=== PATIENT | male | born 1990 | race Caucasian/White ===

== ENCOUNTER 2023-02-27 08:46 | Emergency (ER) | payer BC, SELFPAY ==
[2023-02-27 08:56] VITALS: BP 113/82; PULSE 113; RESP 16; TEMP 36.5; O2SAT 99
--- NOTE | 2023-02-27 09:10 | ECG_ITS ---
Measurements Intervals [place] Rate: 77 P: 64 [place]: 155 QRS: 97 QRSD: 104 T: 25 QT: 342 QTc: 389 Interpretive Statements SINUS RHYTHM WITH SINUS ARRHYTHMIA POSSIBLE LEFT ATRIAL ENLARGEMENT INCOMPLETE RIGHT BUNDLE BRANCH BLOCK BORDERLINE ECG NO PREVIOUS ECG AVAILABLE FOR COMPARISON Electronically Signed On 02-28-2023 16:15:10 CDT by Chay Wynn M.D.
--- NOTE | 2023-02-27 09:14 | ED.CHESTPAIN ---
HPI - Chest Pain General Chief Complaint: Chest Pain Stated Complaint: CHEST PAIN Time Seen by Provider: 02/27/23 09:35 Source: patient Mode of arrival: ambulatory Limitations: no limitations History of Present Illness HPI narrative: 32 y/o male with hx VSD (and unspecified surgery on aorta as ) presented for c/o intermittent left chest pain this week. Endorses pokes to the left chest and left axilla, and has noticed HR has increased to 110s. Denies palpitations, but states he can 'feel it beating faster.' Patient follows with [facility] strategic client executive Dr Briceno. He requested his echo be moved up from September to March, unrelated to these complaints. He has not contacted strategic client executive about the chest pain. Denies associated dizziness, n/v/, radiating pain or sweating. Pain is not reproducible. Denies increase in caffeine. Denies injury or lifting/pushing. Related Data Home Medications Medication Instructions Recorded Confirmed No Home Medications 02/27/23 02/27/23 Allergies Allergy/AdvReac Type Severity Reaction Status Date / Time No Known Allergies Allergy Verified 02/27/23 08:54 Review of Systems Review of Systems: CONSTITUTIONAL: Denies body aches, fever, chills, or sweats. EYES: Denies visual changes, redness, or discharge. ENT: Denies rhinorrhea, congestion, sore throat, or otalgia. CARDIOVASCULAR: Reports chest pain, Denies palpitations, or edema. RESPIRATORY: Denies cough, sob, wheezing. GASTROINTESTINAL: Denies abdominal pain, nausea, vomiting, or diarrhea. GENITOURINARY: Denies dysuria or hematuria. SKIN: Denies rash, itching, or wounds. MUSCULOSKELETAL: Denies back pain, joint pain, or myalgia. NEUROLOGIC: Denies headache, numbness, tingling, or weakness. All systems reviewed & are unremarkable except as noted in HPI and below PMFSH Past Medical History Medical History (Updated 02/27/23 @ 11:28 by Monica Monroe APRN) VSD (ventricular septal defect) Comments At time of signature, I have reviewed and agree with nursing past medical, surgical, social and family history unless otherwise noted. Please see nursing chart for further information. There is no relevant family history pertinent to the presenting complaint Exam Narrative: GENERAL: Well-appearing, in no acute distress. EYES: EOMI. No redness or drainage. Conjunctivae normal. ENT: Mucous membranes pink and moist. No rhinorrhea. TMs normal bilaterally. Throat normal. Uvula midline. NECK: Normal AROM. Supple. CHEST: No respiratory distress. Lungs clear throughout all ahumada. Unable to illicit chest pain. HEART: Regular rate and rhythm. No murmur appreciated. ABDOMEN: Soft, nontender, nondistended, normal active bowel sounds. EXTREMITIES: Normal range of motion. No edema. SKIN: Warm, dry, no rash. Capillary refill normal. Normal skin turgor. NEURO: Alert and oriented x3. Gait steady. PSYCH: Normal affect. Course Course Emergency Course: Patient is aware of diagnosis, understands and agrees to treatment plan. Anticipatory guidance given. Patient agrees to follow-up as directed and is aware of reasons to seek care at the emergency department. Portions of this record may have been created with voice recognition software Level of Care: Express Care Visit Vital Signs Vital signs: Vital Signs Temperature 97.7 F 02/27/23 08:56 Pulse Rate 113 H 02/27/23 08:56 Respiratory Rate 16 02/27/23 08:56 Blood Pressure 113/82 02/27/23 08:56 Pulse Oximetry 99 02/27/23 08:56 Temperature 97.7 F 02/27/23 08:56 Pulse Rate 113 H 02/27/23 08:56 Respiratory Rate 16 02/27/23 08:56 Blood Pressure 113/82 02/27/23 08:56 Pulse Oximetry 99 02/27/23 08:56 MDM - Chest Pain MDM Narrative Medical decision making narrative: Patient presented for complaint of intermittent left chest this week. EKG reviewed, no comparison available; results reviewed with pt and father. Patient currently denies any chest pain. Contac
== END 2023-02-27 10:28 | disposition home or self-care (01) ==
PROVIDERS: Emergency Provider Nurse Practitioner Family; PCP Family Medicine Adolescent Medicine
DX: R07.9 Chest pain, unspecified (principal); I45.10 Unspecified right bundle-branch block
CPT/HCPCS: 93005; 99213; G0463

== ENCOUNTER 2024-03-30 08:40 | Emergency (ER) | payer OTHER, SELFPAY ==
[2024-03-30 08:55] VITALS: BP 111/72; PULSE 129; RESP 16; TEMP 36.6; O2SAT 97
--- NOTE | 2024-03-30 08:58 | ED.URI ---
HPI - URI/Sore Throat General Chief Complaint: Upper Respiratory Infection Stated Complaint: SORE THROAT Time Seen by Provider: 03/30/24 09:00 Source: patient, RN notes reviewed and old records reviewed Mode of arrival: ambulatory Limitations: no limitations History of Present Illness HPI Narrative: 34 year old male who presents to [facility] care with complaints of dizziness on Friday then yesterday started with a sore throat. Patient reports no fever and reports dizziness resolved on Friday evening..Patient has not taken any OTC medications for his symptoms denies any known fevers, chills or sweats. admits to some soreness with swallowing. MD elicited complaint: sore throat Pertinent past history: other (aortic coarctiation surgery at ) Onset (ago): day(s) Severity: mild Able to tolerate fluids by mouth: Yes Treatments prior to arrival: none Related Data Allergies Allergy/AdvReac Type Severity Reaction Status Date / Time No Known Allergies Allergy Verified 03/30/24 08:48 Review of Systems Review of Systems: CONSTITUTIONAL: Denies malaise, chills, sweats, or fever. EYES: Denies visual changes, redness, or discharge. ENT: Reports no rhinorrhea, congestion, sinus pain, no otalgia and positive for sore throat. CARDIOVASCULAR: Denies chest pain, palpitations, or edema. RESPIRATORY: Reports cough.? Denies dyspnea. GASTROINTESTINAL: Denies abdominal pain, nausea, vomiting, diarrhea SKIN: Denies rash or itching. MUSCULOSKELETAL: Denies myalgia. NEUROLOGIC: Denies headache. All systems reviewed & are unremarkable except as noted in HPI and below PMFSH Past Medical History Medical History (Updated 03/30/24 @ 10:46 by Anita Bond NP) VSD (ventricular septal defect) takes antibiotics with dental procedures Surgical History Surgical History (Updated 03/30/24 @ 10:46 by Anita Bond NP) Status post aortic coarctation repair at Social History Social History (Updated 03/30/24 @ 09:12 by Anita Bond NP) Smoking status: Never smoker Alcohol intake: current Alcohol use details: rare social Substance use type: does not use Living arrangements: with family Gender identity (if verbalized by the patient): Male Comments At time of signature, agree with nursing past medical, surgical, social and family history. There is no relevant family history pertinent to the presenting complaint Exam Narrative: GENERAL: Well-appearing, well-nourished, and in no acute distress. HEAD: Normocephalic EYES: PERRLA, conjunctivae clear ENT: Nares clear, turbinates edematous and erythematous, clear discharge. Mucous membranes moist. TM pearly pineda with dull light reflex bilaterally; no tragal tenderness. Oropharynx erythematous without lesions. Tonsils red and enlarged and without exudate, no drooling, no hoarseness, no trismus, uvula midline. NECK: Supple. lymphadenopathy CHEST: Clear to auscultation, breath sounds equal. No wheezing, rhonchi, rales, or stridor. No respiratory distress, speaks in full sentences, no cough noted SAO2 97% on room air HEART: Regular rate and rhythm. No murmur heard. SKIN: Warm, dry, no rash. NEURO: Alert and oriented x3. PSYCH: Normal mood and affect Course Course Emergency Course: Patient is aware of diagnosis, understands and agrees to treatment plan.? Anticipatory guidance given.? Patient agrees to follow-up as directed and is aware of reasons to seek care at the emergency department. Portions of this record may have been created with voice recognition software Level of Care: Express Care Visit Vital Signs Vital signs: Vital Signs Temperature 36.6 C 03/30/24 08:55 Pulse Rate 129 H 03/30/24 08:55 Respiratory Rate 16 03/30/24 08:55 Blood Pressure 111/72 03/30/24 08:55 Pulse Oximetry 97 03/30/24 08:55 Temperature 36.6 C 03/30/24 08:55 Pulse Rate 129 H 03/30/24 08:55 Respiratory Rate 16 03/30
== END 2024-03-30 09:18 | disposition home or self-care (01) ==
PROVIDERS: Emergency Provider Registered Nurse; PCP Family Medicine Adolescent Medicine
DX: J02.0 Streptococcal pharyngitis (principal)
CPT/HCPCS: 87880; 99213; G0463